=== PATIENT | male | born 1970 | race Caucasian/White ===

== ENCOUNTER 2017-07-29 20:52 | Emergency (ER) | payer OTHER ==
--- NOTE | 2017-07-29 20:55 | ER Report ---
History and Physical Time Seen By MD: 20:55 HPI/ROS CHIEF COMPLAINT: Abdominal pain, back pain HISTORY OF PRESENT ILLNESS: 47-year-old male with 4-5 hours of severe epigastric pain radiating to his back. Patient has severe nausea. He's not had any vomiting. He's had no diarrhea or dysuria. Patient states an extensive past surgical history he has a gastric bypass. He had appendectomy when they did a lymph node dissection for testicular cancer. He is also status post cholecystectomy. Patient notes pain radiates to his middle back between his shoulder blades. Patient denies shortness of breath or dizziness. He's noted some chills but no fever. He has a history of 2 previous kidney stones. He notes no alleviating or exacerbating factors. He describes 12/27 pain is colicky in nature. Patient denies recent travel or consumption of bad food. REVIEW OF SYSTEMS: Respiratory: No cough, no dyspnea. Cardiovascular: No chest pain, no palpitations. Gastrointestinal: As above Musculoskeletal: As above Allergies: Coded Allergies: acetaminophen (Verified Allergy, Intermediate, nausea/vomiting, 07/29/17) Iodine and Iodide Containing Produc (Verified Adverse Reaction, Intermediate, rash, 07/29/17) can have must be pre-treated with benadryl. Home Meds Active Scripts Ondansetron Hcl (ZOFRAN) 4 Mg Tablet, 4 MG PO Q8-12H Y for NAUSEA/VOMITING, #15 Prov:CARA RICHARD DO 07/30/17 Oxycodone Hcl (OXYCODONE HCL) 5 Mg Tablet, 1-2 TAB PO Q4H Y for PAIN, #15 Prov:CARA RICHARD DO 07/30/17 Reviewed Nurses Notes: Yes Old Medical Records Reviewed: Yes Constitutional Vital Sign - Last 24 Hours 07/29/17 07/29/17 07/29/17 07/29/17 21:01 21:01 21:07 21:15 Temp 97.8 Pulse 99 97 Resp 16 B/P (MAP) 124/91 124/91 (102) 114/81 (92) Pulse Ox 90 93 O2 Delivery Room Air 07/29/17 07/29/17 07/29/17 07/29/17 21:22 21:30 21:52 22:00 Pulse 102 89 B/P (MAP) 117/79 (92) 118/79 (92) 114/81 (92) Pulse Ox 94 92 07/29/17 07/29/17 07/29/17 07/29/17 22:07 22:12 22:15 22:27 Pulse 89 114 89 B/P (MAP) 117/79 (92) Pulse Ox 92 93 92 07/29/17 07/29/17 07/29/17 07/29/17 22:30 22:42 22:45 23:10 Pulse 90 B/P (MAP) 113/79 (90) 118/88 (98) 110/73 (85) Pulse Ox 88 07/29/17 07/29/17 07/29/17 07/29/17 23:12 23:15 23:27 23:30 Pulse 89 91 B/P (MAP) 109/75 (86) 100/67 (78) Pulse Ox 86 88 07/29/17 07/29/17 07/29/17 23:42 23:45 23:57 Pulse 90 89 B/P (MAP) 118/82 (94) Pulse Ox 87 91 Physical Exam Vital signs stable, afebrile, pulse ox normal General Appearance: The patient is alert, has no immediate need for airway protection and no current signs of toxicity. Mild distress, slightly pale appearing HEENT: Pupils equal and round no injection. Oropharynx with moist membranes, no erythema Respiratory: Chest is non tender, lungs are clear to auscultation. Cardiac: regular rate and rhythm Gastrointestinal: Abdomen is soft, mild distention, bilateral upper quadrant tenderness, no rebound or guarding, no masses, bowel sounds normal. Musculoskeletal: Neck: Neck is supple and non tender. No lymphadenopathy Extremities have full range of motion and are non tender. Skin: No rashes or lesions. DIFFERENTIAL DIAGNOSIS: After history and physical exam differential diagnosis was considered for abdominal pain including but not limited to appendicitis, cholecystitis, gastritis, gastroenteritis, pancreatitis, food poisoning, bowel obstruction, and urinary tract infection. Medical Decision Making Data Points Result Diagram: 07/29/17213207/29/172132 Laboratory Hematology Test 07/29/17 21:00 07/29/17 21:33 Urine Color Yellow Urine Clarity Clear Urine pH 5.0 pH (4.8-9.5) Urine Specific [place] 1.010 Urine Protein Negative mg/dL (NEGATIVE) Urine Glucose (UA) Negative mg/dL (NEGATIVE) Urine Ketones Trace mg/dL (NEGATIVE) Urine Blood Large (NEGATIVE) Urine Nitrite Negative (NEGATIVE) Urine Bilirubin Negative (NEGATIVE) Urine Urobilinogen Negative mg/dL (0.2-1.9) Urine Leukocyte Esterase Negative (NEGATIVE) Urine RBC 19 /HPF (0-2/HPF) Urine WBC 1 /HPF (0-5/HPF) Urine Squamous Epithelial Cells None /LPF (</=FEW) Urine Renal Epithelial Cells Few /LPF (NONE-FEW) Urine Bacteria Negative /HPF (NONE-FEW) Urine Mucus Few /HPF (NONE-FEW) Red Blood Count 4.89 M/uL (4.00-5.60) Mean Corpuscular Volume 81.5 fL (80.0-96.0) Mean Corpuscular Hemoglobin 26.8 pg (26.0-33.0) Mean Corpuscular Hemoglobin Concent 32.9 g/dL (32.0-36.0) Red Cell Distribution Width 18.6 % (11.5-14.5) Mean Platelet Volume 6.7 fL (7.2-11.1) Neutrophils (%) (Auto) 53.2 % (39.4-72.5) Lymphocytes (%) (Auto) 34.6 % (17.6-49.6) Monocytes (%) (Auto) 9.2 % (4.1-12.4) Eosinophils (%) (Auto) 1.8 % (0.4-6.7) Basophils (%) (Auto) 1.2 % (0.3-1.4) Nucleated RBC Relative Count (auto) 0.0 /100WBC Neutrophils # (Auto) 2.8 K/uL (2.0-7.4) Lymphocytes # (Auto) 1.8 K/uL (1.3-3.6) Monocytes # (Auto) 0.5 K/uL (0.3-1.0) Eosinophils # (Auto) 0.1 K/uL (0.0-0.5) Basophils # (Auto) 0.1 K/uL (0.0-0.1) Nucleated RBC Absolute Count (auto) 0.00 K/uL Sodium Level 146 mmol/L (137-145) Potassium Level 4.0 mmol/L (3.5-5.0) Chloride Level 108 mmol/L (98-107) Carbon Dioxide Level 17 mmol/L (22-30) Blood Urea Nitrogen 8 mg/dl (9-21) Creatinine 0.80 mg/dl (0.66-1.25) Glomerular Filtration Rate Calc > 60.0 Random Glucose 92 mg/dl (75-110) Calcium Level 9.0 mg/dl (8.4-10.2) Total Bilirubin 0.3 mg/dl (0.2-1.3) Aspartate Amino Transf (AST/SGOT) 24 U/L (0-35) Alanine Aminotransferase (ALT/SGPT) 29 U/L (0-56) Alkaline Phosphatase 97 U/L (0-126) Troponin I < 0.012 ng/ml Total Protein 7.7 gm/dl (6.3-8.2) Albumin 4.5 g/dl (3.5-5.0) Amylase Level 113 U/L (0-110) Lipase 384 U/L (23-300) Chemistry Test 07/29/17 21:00 07/29/17 21:33 Urine Color Yellow Urine Clarity Clear Urine pH 5.0 pH (4.8-9.5) Urine Specific [place] 1.010 Urine Protein Negative mg/dL (NEGATIVE) Urine Glucose (UA) Negative mg/dL (NEGATIVE) Urine Ketones Trace mg/dL (NEGATIVE) Urine Blood Large (NEGATIVE) Urine Nitrite Negative (NEGATIVE) Urine Bilirubin Negative (NEGATIVE) Urine Urobilinogen Negative mg/dL (0.2-1.9) Urine Leukocyte Esterase Negative (NEGATIVE) Urine RBC 19 /HPF (0-2/HPF) Urine WBC 1 /HPF (0-5/HPF) Urine Squamous Epithelial Cells None /LPF (</=FEW) Urine Renal Epithelial Cells Few /LPF (NONE-FEW) Urine Bacteria Negative /HPF (NONE-FEW) Urine Mucus Few /HPF (NONE-FEW) White Blood Count 5.2 k/uL (4.5-11.0) Red Blood Count 4.89 M/uL (4.00-5.60) Hemoglobin 13.1 g/dL (14.0-18.0) Hematocrit 39.8 % (42.0-52.0) Mean Corpuscular Volume 81.5 fL (80.0-96.0) Mean Corpuscular Hemoglobin 26.8 pg (26.0-33.0) Mean Corpuscular Hemoglobin Concent 32.9 g/dL (32.0-36.0) Red Cell Distribution Width 18.6 % (11.5-14.5) Platelet Count 334 K/uL (150-450) Mean Platelet Volume 6.7 fL (7.2-11.1) Neutrophils (%) (Auto) 53.2 % (39.4-72.5) Lymphocytes (%) (Auto) 34.6 % (17.6-49.6) Monocytes (%) (Auto) 9.2 % (4.1-12.4) Eosinophils (%) (Auto) 1.8 % (0.4-6.7) Basophils (%) (Auto) 1.2 % (0.3-1.4) Nucleated RBC Relative Count (auto) 0.0 /100WBC Neutrophils # (Auto) 2.8 K/uL (2.0-7.4) Lymphocytes # (Auto) 1.8 K/uL (1.3-3.6) Monocytes # (Auto) 0.5 K/uL (0.3-1.0) Eosinophils # (Auto) 0.1 K/uL (0.0-0.5) Basophils # (Auto) 0.1 K/uL (0.0-0.1) Nucleated RBC Absolute Count (auto) 0.00 K/uL Glomerular Filtration Rate Calc > 60.0 Calcium Level 9.0 mg/dl (8.4-10.2) Total Bilirubin 0.3 mg/dl (0.2-1.3) Aspartate Amino Transf (AST/SGOT) 24 U/L (0-35) Alanine Aminotransferase (ALT/SGPT) 29 U/L (0-56) Alkaline Phosphatase 97 U/L (0-126) Troponin I < 0.012 ng/ml Total Protein 7.7 gm/dl (6.3-8.2) Albumin 4.5 g/dl (3.5-5.0) Amylase Level 113 U/L (0-110) Lipase 384 U/L (23-300) Urinalysis Test 07/29/17 21:00 Urine Color Yellow Urine Clarity Clear Urine pH 5.0 pH (4.8-9.5) Urine Specific [place] 1.010 Urine Protein Negative mg/dL (NEGATIVE) Urine Glucose (UA) Negative mg/dL (NEGATIVE) Urine Ketones Trace mg/dL (NEGATIVE) Urine Blood Large (NEGATIVE) Urine Nitrite Negative (NEGATIVE) Urine Bilirubin Negative (NEGATIVE) Urine Urobilinogen Negative mg/dL (0.2-1.9) Urine Leukocyte Esterase Negative (NEGATIVE) Urine RBC 19 /HPF (0-2/HPF) Urine WBC 1 /HPF (0-5/HPF) Urine Squamous Epithelial Cells None /LPF (</=FEW) Urine Renal Epithelial Cells Few /LPF (NONE-FEW) Urine Bacteria Negative /HPF (NONE-FEW) Urine Mucus Few /HPF (NONE-FEW) EKG/Imaging EKG Interpretation 12 lead EK Rhythm: normal sinus rhythm [place]oe[place]: normal QRS: normal ST segments: normal, no evidence of ischemia or dysrhythmia Imaging X-ray: Three-way abdomen was obtained. I viewed the images myself on the PACS system. My interpretation of the images is: Dilated loops of small bowel, significant fecal stasis noted, no free air in the diaphragm, lung barney are clear. Radiology over read:. HISTORY: Lower abdominal pain for 3 days. History of gastric bypass. COMPARISON: None. TECHNIQUE: PA upright view of the chest, AP supine and AP upright views of the abdomen. Chest: The lungs are clear. The cardiac and mediastinal silhouettes are within normal limits. There is a mild rightward curvature of the thoracic spine. Abdomen: There is posterior lumbar fusion from L4 through S1. There are numerous surgical clips in the midline abdomen. The distribution of bowel gas is normal, with bowel in all four quadrants as well as centrally. No free air. There are mildly dilated small bowel loops in the right upper quadrant. No acute osseous abnormality. There is a left pelvic phlebolith. IMPRESSION: 1. No acute cardiopulmonary process. 2. Mildly dilated small bowel loops in the right upper quadrant. Findings could be due to small bowel obstruction. Results: CT scan of the abdomen and pelvis without contrast was obtained. The results of the study are CT of the abdomen and pelvis without contrast: Indication: Lower abdominal pain. History of multiple surgeries. Technique: Helical CT was performed through the abdomen and pelvis without contrast. Multiplanar reconstructions are reviewed. One of the following dose optimization techniques was utilized in the performance of this exam: Automated exposure control; adjustment of the mA and/ or kV according to the patient's size; or use of an iterative reconstruction technique. Specific details can be referenced in the facility's radiology CT exam operational policy. Comparison: None. Lower lung barney: No focal parenchymal or pleural abnormality is identified. Liver: Enlarged. The right lobe measures 20.6 cm. The hepatic parenchyma appears homogeneous and unremarkable. Gallbladder/biliary tree: There are surgical clips related to prior cholecystectomy. The bile ducts are normal in caliber. Pancreas: Normal in size, shape, and density. Spleen: Normal in size, shape, and density. A small accessory spleen is incidentally noted. Adrenal glands: Within normal limits. Kidneys/urinary bladder: The kidneys are normal in size, shape, and density. There are no signs of urinary tract calculus or obstruction. The urinary bladder appears homogeneous. Intestinal structures: There are postoperative changes around the esophagus and stomach, related to gastric bypass surgery. There are no signs of gastric dilatation or obstruction. The intestinal structures are otherwise unremarkable , as visualized. There are no signs of distal obstruction or focal inflammatory changes. Pelvis: Unremarkable. Aorta and vascular structures: Within normal limits. Retroperitoneum: Surgical clips are observed in the retroperitoneum, with uncertain etiology. There are no signs of retroperitoneal mass or lymph node enlargement. Ascites or fluid collections: None seen. Skeletal structures: There are unremarkable postoperative changes in the lower lumbar spine. No acute skeletal deformity is clearly identified. Impression: No acute process is identified in the abdomen or pelvis. The study was read by the radiologist. I viewed the images myself on the PACS system. ED Course/Re-evaluation Clinical Indication for ER IV: Hydration, IV Access ED Course Patient was admitted to an examination room. H&P was done. The differential diagnoses was considered. On clinical examination. Patient has upper abdominal pain for 5 hours. Patient's treated with IV fluids, Zofran, fentanyl 50 g. His pain is unimproved. A 3-way of the abdomen suggests small bowel obstruction. Patient has numerous previous surgeries. His laboratory studies are unremarkable except for mildly elevated amylase and lipase suggesting mild pancreatitis. Patient advised a clear liquid diet. He was offered the option of admission for pain control. He declined. He states a follow-up with his primary care in [place] if unimproved in 3-5 days. Patient's allergic to Tylenol. Patient's given a prescription for oxycodone and Zofran. Patient advised to follow-up with local internists information provided. Decision to Disposition Date: Jul 30, 2017 Decision to Disposition Time: 00:12 Depart Departure Latest Vital Signs Vital Signs Date Time Temp Pulse Resp B/P (MAP) Pulse Ox O2 Delivery O2 Flow Rate FiO2 07/29/17 23:57 89 91 07/29/17 23:45 118/82 (94) 07/29/17 21:01 97.8 16 Room Air Impression: Primary Impression: Pancreatitis Condition: Improved Disposition: HOME OR SELF-CARE Referrals: PETERSON CONDE MD, FARRUKH MD New Scripts Ondansetron Hcl (ZOFRAN) 4 Mg Tablet 4 MG PO Q8-12H Y for NAUSEA/VOMITING, #15 Prov: CARA RICHARD DO 07/30/17 Oxycodone Hcl (OXYCODONE HCL) 5 Mg Tablet 1-2 TAB PO Q4H Y for PAIN, #15 Prov: CARA RICHARD DO 07/30/17 Patient Instructions: Clear Liquid Diet (ED), Pancreatitis (ED) Additional Instructions: Follow clear liquid diet for 24-48 hours, then advance to Janessa diet, bananas, rice, applesauce and toast Follow-up with your primary care if unimproved in 3-5 days or go to the physicians listed on your paperwork Problem Qualifiers Primary Impression: Pancreatitis Chronicity: acute Pancreatitis type: unspecified pancreatitis type Acute pancreatitis complication: unspecified Qualified Codes: K85.90 - Acute pancreatitis without necrosis or infection, unspecified CARA RICHARD DO Jul 29, 2017 20:55
[2017-07-29] MEDS ORDERED: NS(*) 0.9% 1000 ML BAG 1,000 ML IV ONE (21:07)
[2017-07-29] MEDS ORDERED: fentaNYL CITR 100 MCG/2 ML AMP IVP ONE (21:10)
[2017-07-29] MEDS ORDERED: ONDANSETRON 4 MG/2 ML VIAL IVP ONE (21:10)
--- NOTE | 2017-07-29 21:18 | EKG ---
FACILITY: [facility] - [place] PATIENT NAME: REY GUIDRY : [id number] MR: [id number] V: [id number] EXAM DATE: ORDERING PHYSICIAN: CARA RICHARD TECHNOLOGIST: Juan Antonio Hebert Reason : Blood Pressure : / mmHG Vent. Rate : 097 BPM Atrial Rate : 097 BPM P-R Int : 138 ms QRS Dur : 090 ms QT Int : 350 ms P-R-T Axes : 032 -15 009 degrees QTc Int : 444 ms Normal sinus rhythm Normal ECG No previous ECGs available Confirmed by CARMELO PARRISH ([id number]) on 07/30/2017 6:49:28 AM Referred By: Confirmed By:CARMELO PARRISH
[2017-07-29 21:39] LABS: PLATELET COUNT, AUTOMATED 334 K/uL (150-450)
[2017-07-29] MEDS ORDERED: HYDROmorphone* 1 MG/ML 1 MG/ML ML IVP ONE ×2 (22:00→23:00)
--- NOTE | 2017-07-29 22:39 | RADIOLOGY IMAGING REPORT ---
FACILITY: [facility] PATIENT NAME: Roberto Hilliard : 1970 MR: [id number] V: [id number] EXAM DATE: ORDERING PHYSICIAN: CARA RICHARD TECHNOLOGIST: [place] [facility] [place] H[place] : 1970 Visit/Account:[id number] Date of Sevice: 07/29/2017 ACUTE ABDOMEN SERIES 3 VIEW HISTORY: Lower abdominal pain for 3 days. History of gastric bypass. COMPARISON: None. TECHNIQUE: PA upright view of the chest, AP supine and AP upright views of the abdomen. Chest: The lungs are clear. The cardiac and mediastinal silhouettes are within normal limits. There i s a mild rightward curvature of the thoracic spine. Abdomen: There is posterior lumbar fusion from L4 through S1. There are numerous surgical clips in th e midline abdomen. The distribution of bowel gas is normal, with bowel in all four quadrants as well as centrally. No free air. There are mildly dilated small bowel loops in the right upper quadrant. No acute osseous abnormality. There is a left pelvic phlebolith. IMPRESSION: 1. No acute cardiopulmonary process. 2. Mildly dilated small bowel loops in the right upper quadrant. Findings could be due to small bowel obstruction. Report Dictated By: Rowena Caro at 07/29/2017 10:32 PM Report E-Signed By: Rowena Caro at 07/29/2017 10:34 PM WSN:[id number]
[2017-07-29 23:45] VITALS: BP 118/82
--- NOTE | 2017-07-30 | RADIOLOGY IMAGING REPORT ---
FACILITY: [facility] - [place] PATIENT NAME: Roberto Hilliard : 1970 MR: [id number] V: [id number] EXAM DATE: ORDERING PHYSICIAN: CARA RICHARD TECHNOLOGIST: Location: [facility] - [place] Patient: Roberto Hilliard : 1970 Visit/Account:[id number] Date of Sevice: 07/29/2017 CT of the abdomen and pelvis without contrast: Indication: Lower abdominal pain. History of multiple surgeries. Technique: Helical CT was performed through the abdomen and pelvis without contrast. Multiplanar rec onstructions are reviewed. One of the following dose optimization techniques was utilized in the performance of this exam: Autom ated exposure control; adjustment of the mA and/or kV according to the patient's size; or use of an i terative reconstruction technique. Specific details can be referenced in the facility's radiology C T exam operational policy. Comparison: None. Lower lung barney: No focal parenchymal or pleural abnormality is identified. Liver: Enlarged. The right lobe measures 20.6 cm. The hepatic parenchyma appears homogeneous and unre markable. Gallbladder/biliary tree: There are surgical clips related to prior cholecystectomy. The bile ducts a re normal in caliber. Pancreas: Normal in size, shape, and density. Spleen: Normal in size, shape, and density. A small accessory spleen is incidentally noted. Adrenal glands: Within normal limits. Kidneys/urinary bladder: The kidneys are normal in size, shape, and density. There are no signs of ur inary tract calculus or obstruction. The urinary bladder appears homogeneous. Intestinal structures: There are postoperative changes around the esophagus and stomach, related to g astric bypass surgery. There are no signs of gastric dilatation or obstruction. The intestinal struct ures are otherwise unremarkable, as visualized. There are no signs of distal obstruction or focal inf lammatory changes. Pelvis: Unremarkable. Aorta and vascular structures: Within normal limits. Retroperitoneum: Surgical clips are observed in the retroperitoneum, with uncertain etiology. There a re no signs of retroperitoneal mass or lymph node enlargement. Ascites or fluid collections: None seen. Skeletal structures: There are unremarkable postoperative changes in the lower lumbar spine. No acute skeletal deformity is clearly identified. Impression: No acute process is identified in the abdomen or pelvis. Report Dictated By: Camilo Rosa MD at 07/29/2017 11:46 PM Report E-Signed By: Camilo Rosa MD at 07/29/2017 11:56 PM WSN:[id number]
[2017-07-30] MEDS ORDERED: OXYC5TAB38 PO (00:14)
[2017-07-30] MEDS ORDERED: ONDA4TAB97 PO (00:15)
[2017-07-30] MEDS ORDERED: KETOROLAC 30 MG/ML VIAL IVP ONE (00:20)
[2017-07-30] MEDS ORDERED: ONDANSETRON 4 MG ODT TH SL ONE (00:20)
[2017-07-30] MEDS ORDERED: HYDROmorphone 2 MG TAB TH 2 TAB/BOTTLE PO ONE (00:20)
--- NOTE | 2017-08-02 11:49 | Transitional Care Management ---
TCM Discharge Criteria Transitional Care Comment: 08/02 Left message. TAWANA STORM Aug 02, 2017 11:49
== END 2017-07-30 00:30 | disposition home or self-care (01) ==
LOC: ER 21:03
DX: K85.90 Acute pancreatitis without necrosis or infection, unspecified (principal)
CPT/HCPCS: 74022; 74176; 81001; 82150; 83690; 84484; 85025; 93005; 96361; 96374; 96375; 99284; A9270; J1170; J1885; J2405; J3010; J7030; S0119; 82040; 82247; 82310; 82374; 82435; 82565; 82947; 84075; 84132; 84155; 84295; 84450; 84460; 84520

== ENCOUNTER 2017-08-02 22:36 | Emergency (ER) | payer BC, OTHER ==
[~2017-08-02 22:36] MED LIST: ONDA4TAB97 PO; OXYC5TAB38 PO
--- NOTE | 2017-08-02 23:00 | ER Report ---
History and Physical Time Seen By MD: 22:59 HPI/ROS CHIEF COMPLAINT: Abdominal pain, vomiting HISTORY OF PRESENT ILLNESS: 47-year-old male seen here on 07/28/17 diagnosed with mild pancreatitis. His lipase was 384. Patient was discharged home on oxycodone 5 mg and Zofran 4 mg. Patient follow clear liquid diet and was better after 24 hours. He subsequently got worse over the last 2 days with return of vomiting and epigastric pain radiating to his back. She had a CT scan without contrast performed on his previous ER visit 4 days ago. Patient denies hematemesis or diarrhea. REVIEW OF SYSTEMS: Respiratory: No cough, no dyspnea. Cardiovascular: No chest pain, no palpitations. Gastrointestinal: As above Musculoskeletal: As above Allergies: Coded Allergies: acetaminophen (Verified Allergy, Intermediate, nausea/vomiting, 08/02/17) Iodine and Iodide Containing Produc (Verified Adverse Reaction, Intermediate, rash, 08/02/17) can have must be pre-treated with benadryl. Home Meds Active Scripts Oxycodone Hcl (OXYCODONE HCL) 5 Mg Tablet, 5 MG PO Q4H Y for PAIN, #10 Prov:CARA RICHARD DO 08/03/17 Ondansetron (ZOFRAN ODT) 4 Mg Tab.rapdis, 4 MG PO Q6H Y for NAUSEA/VOMITING, # 12 TAB.LUCILA Prov:CARA RICHARD DO 08/03/17 Promethazine Hcl (PROMETHAZINE HCL) 25 Mg Tablet, 25 MG PO Q4H Y for NAUSEA/ VOMITING, #15 TAB Prov:CARA RICHARD DO 08/03/17 Ondansetron Hcl (ZOFRAN) 4 Mg Tablet, 4 MG PO Q8-12H Y for NAUSEA/VOMITING, #15 Prov:CARA RICHARD 07/30/17 Oxycodone Hcl (OXYCODONE HCL) 5 Mg Tablet, 1-2 TAB PO Q4H Y for PAIN, #15 Prov:CARA RICHARD 07/30/17 Past Medical/Surgical History Pancreatitis Reviewed Nurses Notes: Yes Old Medical Records Reviewed: Yes Constitutional Vital Sign - Last 24 Hours 08/02/17 08/02/17 08/02/17 08/02/17 23:01 23:02 23:06 23:36 Temp 98.5 Pulse 123 120 117 Resp 18 B/P (MAP) 112/70 (84) 112/70 Pulse Ox 94 95 93 O2 Delivery Room Air 08/02/17 08/02/17 08/03/17 08/03/17 23:48 23:51 00:00 00:06 Pulse ? B/P (MAP) 98/66 (77) 91/59 (70) Pulse Ox 90 89 08/03/17 08/03/17 08/03/17 08/03/17 00:21 00:30 00:35 00:50 Pulse 101 101 100 B/P (MAP) 99/62 (74) Pulse Ox 90 89 89 08/03/17 08/03/17 08/03/17 08/03/17 01:00 01:05 01:14 01:20 Pulse 92 90 B/P (MAP) 102/76 (85) 96/74 (81) Pulse Ox 88 89 08/03/17 01:30 B/P (MAP) 116/78 (91) Physical Exam General Appearance: The patient is alert, has no immediate need for airway protection and no current signs of toxicity. Slightly pale appearing, skin warm and dry, vital signs stable, afebrile HEENT: Pupils equal and round no injection. Anicteric sclera, oropharynx with moist. Membranes, no erythema or exudate Respiratory: Chest is non tender, lungs are clear to auscultation. Cardiac: regular rate and rhythm Gastrointestinal: [Abdomen is soft mild epigastric tenderness, no rebound or guarding, no masses, bowel sounds normal.] Musculoskeletal: Neck: Neck is supple and non tender. Extremities have full range of motion and are non tender. Skin: No rashes or lesions. DIFFERENTIAL DIAGNOSIS: After history and physical exam differential diagnosis was considered for abdominal pain including but not limited to appendicitis, cholecystitis, gastritis, pancreatitis and urinary tract infection. Medical Decision Making Data Points Result Diagram: 08/02/17 1762 08/02/17 2336 Laboratory Hematology Test 08/02/17 22:58 08/02/17 23:39 Urine Color Yellow Urine Clarity Clear Urine pH 6.0 pH (4.8-9.5) Urine Specific [place] 1.011 Urine Protein Negative mg/dL (NEGATIVE) Urine Glucose (UA) 500 mg/dL (NEGATIVE) Urine Ketones 20 mg/dL (NEGATIVE) Urine Blood Moderate (NEGATIVE) Urine Nitrite Negative (NEGATIVE) Urine Bilirubin Negative (NEGATIVE) Urine Urobilinogen 2.0 mg/dL (0.2-1.9) Urine Leukocyte Esterase Negative (NEGATIVE) Urine RBC 8 /HPF (0-2/HPF) Urine WBC 7 /HPF (0-5/HPF) Urine Squamous Epithelial Cells None /LPF (</=FEW) Urine Bacteria Negative /HPF (NONE-FEW) Urine Mucus None /HPF (NONE-FEW) Red Blood Count 4.97 M/uL (4.00-5.60) Mean Corpuscular Volume 81.7 fL (80.0-96.0) Mean Corpuscular Hemoglobin 26.4 pg (26.0-33.0) Mean Corpuscular Hemoglobin Concent 32.3 g/dL (32.0-36.0) Red Cell Distribution Width 18.7 % (11.5-14.5) Mean Platelet Volume 7.1 fL (7.2-11.1) Neutrophils (%) (Auto) 55.7 % (39.4-72.5) Lymphocytes (%) (Auto) 30.4 % (17.6-49.6) Monocytes (%) (Auto) 10.9 % (4.1-12.4) Eosinophils (%) (Auto) 2.0 % (0.4-6.7) Basophils (%) (Auto) 1.0 % (0.3-1.4) Nucleated RBC Relative Count (auto) 0.0 /100WBC Neutrophils # (Auto) 3.3 K/uL (2.0-7.4) Lymphocytes # (Auto) 1.8 K/uL (1.3-3.6) Monocytes # (Auto) 0.6 K/uL (0.3-1.0) Eosinophils # (Auto) 0.1 K/uL (0.0-0.5) Basophils # (Auto) 0.1 K/uL (0.0-0.1) Nucleated RBC Absolute Count (auto) 0.00 K/uL Peripheral Blood Smear No Y/N Venous Blood pH 7.44 (7.31-7.41) Sodium Level 144 mmol/L (137-145) Potassium Level 3.9 mmol/L (3.5-5.0) Chloride Level 109 mmol/L (98-107) Carbon Dioxide Level 15 mmol/L (22-30) Blood Urea Nitrogen 10 mg/dl (9-21) Creatinine 0.90 mg/dl (0.66-1.25) Glomerular Filtration Rate Calc > 60.0 Random Glucose 79 mg/dl (75-110) Calcium Level 9.3 mg/dl (8.4-10.2) Total Bilirubin 0.5 mg/dl (0.2-1.3) Aspartate Amino Transf (AST/SGOT) 25 U/L (0-35) Alanine Aminotransferase (ALT/SGPT) 21 U/L (0-56) Alkaline Phosphatase 104 U/L (0-126) Total Protein 7.7 gm/dl (6.3-8.2) Albumin 4.4 g/dl (3.5-5.0) Amylase Level 98 U/L (0-110) Lipase 286 U/L (23-300) Chemistry Test 08/02/17 22:58 08/02/17 23:39 Urine Color Yellow Urine Clarity Clear Urine pH 6.0 pH (4.8-9.5) Urine Specific [place] 1.011 Urine Protein Negative mg/dL (NEGATIVE) Urine Glucose (UA) 500 mg/dL (NEGATIVE) Urine Ketones 20 mg/dL (NEGATIVE) Urine Blood Moderate (NEGATIVE) Urine Nitrite Negative (NEGATIVE) Urine Bilirubin Negative (NEGATIVE) Urine Urobilinogen 2.0 mg/dL (0.2-1.9) Urine Leukocyte Esterase Negative (NEGATIVE) Urine RBC 8 /HPF (0-2/HPF) Urine WBC 7 /HPF (0-5/HPF) Urine Squamous Epithelial Cells None /LPF (</=FEW) Urine Bacteria Negative /HPF (NONE-FEW) Urine Mucus None /HPF (NONE-FEW) White Blood Count 5.9 k/uL (4.5-11.0) Red Blood Count 4.97 M/uL (4.00-5.60) Hemoglobin 13.1 g/dL (14.0-18.0) Hematocrit 40.6 % (42.0-52.0) Mean Corpuscular Volume 81.7 fL (80.0-96.0) Mean Corpuscular Hemoglobin 26.4 pg (26.0-33.0) Mean Corpuscular Hemoglobin Concent 32.3 g/dL (32.0-36.0) Red Cell Distribution Width 18.7 % (11.5-14.5) Platelet Count 369 K/uL (150-450) Mean Platelet Volume 7.1 fL (7.2-11.1) Neutrophils (%) (Auto) 55.7 % (39.4-72.5) Lymphocytes (%) (Auto) 30.4 % (17.6-49.6) Monocytes (%) (Auto) 10.9 % (4.1-12.4) Eosinophils (%) (Auto) 2.0 % (0.4-6.7) Basophils (%) (Auto) 1.0 % (0.3-1.4) Nucleated RBC Relative Count (auto) 0.0 /100WBC Neutrophils # (Auto) 3.3 K/uL (2.0-7.4) Lymphocytes # (Auto) 1.8 K/uL (1.3-3.6) Monocytes # (Auto) 0.6 K/uL (0.3-1.0) Eosinophils # (Auto) 0.1 K/uL (0.0-0.5) Basophils # (Auto) 0.1 K/uL (0.0-0.1) Nucleated RBC Absolute Count (auto) 0.00 K/uL Peripheral Blood Smear No Y/N Venous Blood pH 7.44 (7.31-7.41) Glomerular Filtration Rate Calc > 60.0 Calcium Level 9.3 mg/dl (8.4-10.2) Total Bilirubin 0.5 mg/dl (0.2-1.3) Aspartate Amino Transf (AST/SGOT) 25 U/L (0-35) Alanine Aminotransferase (ALT/SGPT) 21 U/L (0-56) Alkaline Phosphatase 104 U/L (0-126) Total Protein 7.7 gm/dl (6.3-8.2) Albumin 4.4 g/dl (3.5-5.0) Amylase Level 98 U/L (0-110) Lipase 286 U/L (23-300) Urinalysis Test 08/02/17 22:58 Urine Color Yellow Urine Clarity Clear Urine pH 6.0 pH (4.8-9.5) Urine Specific [place] 1.011 Urine Protein Negative mg/dL (NEGATIVE) Urine Glucose (UA) 500 mg/dL (NEGATIVE) Urine Ketones 20 mg/dL (NEGATIVE) Urine Blood Moderate (NEGATIVE) Urine Nitrite Negative (NEGATIVE) Urine Bilirubin Negative (NEGATIVE) Urine Urobilinogen 2.0 mg/dL (0.2-1.9) Urine Leukocyte Esterase Negative (NEGATIVE) Urine RBC 8 /HPF (0-2/HPF) Urine WBC 7 /HPF (0-5/HPF) Urine Squamous Epithelial Cells None /LPF (</=FEW) Urine Bacteria Negative /HPF (NONE-FEW) Urine Mucus None /HPF (NONE-FEW) ED Course/Re-evaluation Clinical Indication for ER IV: Hydration, IV Access ED Course Patient was admitted to an examination room. H&P was done. The differential diagnoses was considered. On clinical examination. I'll pain and vomiting for 2 days. He was diagnosed with pancreatitis on his previous ER visit on . Patient's treated with IV pain medication. His repeat diagnostic studies are normal. The lack of clinical findings. Race suspicions. Prescription drug monitoring website for [place] and [place] were searched. Patient has numerous entries at various ERs and locations which would suggest drug-seeking behavior. He was confronted with this information. He states he's has a back ablation scheduled for his failed back surgery. He also states he uses them for chronic abdominal pain. I advised patient he needs a single primary provider providing his chronic pain management. Patient advised that no further opiate prescriptions will be provided at our location. Decision to Disposition Date: Aug 03, 2017 Decision to Disposition Time: 00:21 Depart Departure Latest Vital Signs Vital Signs Date Time Temp Pulse Resp B/P (MAP) Pulse Ox O2 Delivery O2 Flow Rate FiO2 08/03/17 01:30 116/78 (91) 08/03/17 01:20 90 89 08/02/17 23:02 98.5 18 Room Air Impression: Primary Impression: Vomiting Additional Impressions: Abdominal pain Opiate withdrawal Condition: Improved Disposition: HOME OR SELF-CARE Referrals: ANTONIO MAYNARD MD New Scripts Oxycodone Hcl (OXYCODONE HCL) 5 Mg Tablet 5 MG PO Q4H Y for PAIN, #10 Prov: CARA RICHARD DO 08/03/17 Ondansetron (ZOFRAN ODT) 4 Mg Tab.rapdis 4 MG PO Q6H Y for NAUSEA/VOMITING, #12 TAB.LUCILA Prov: CARA RICHARD DO 08/03/17 Promethazine Hcl (PROMETHAZINE HCL) 25 Mg Tablet 25 MG PO Q4H Y for NAUSEA/VOMITING, #15 TAB Prov: CARA RICHARD DO 08/03/17 Patient Instructions: Abdominal Pain (ED), Acute Nausea and Vomiting (ED) Additional Instructions: Follow clear liquid diet for 24 hours, then advance as tolerated Avoid fatty food, greasy foods, vegetables and dairy Follow-up with your primary care if unimproved in 3-5 days Problem Qualifiers Primary Impression: Vomiting Vomiting type: unspecified Vomiting Intractability: unspecified Nausea presence: unspecified Qualified Codes: R11.10 - Vomiting, unspecified Additional Impressions: Abdominal pain Abdominal location: epigastric Qualified Codes: R10.13 - Epigastric pain CARA RICHARD DO Aug 02, 2017 23:00
[2017-08-02] MEDS ORDERED: NS(*) 0.9% 1000 ML BAG 1,000 ML IV ONE (23:04)
[2017-08-02] MEDS ORDERED: ONDANSETRON 4 MG/2 ML VIAL IVP ONE (23:05)
[2017-08-02] MEDS ORDERED: HYDROmorphone* 1 MG/ML 1 MG/ML ML IVP ONE (23:05)
[2017-08-02] MEDS ORDERED: PROMETHAZINE 25 MG/ML 1 ML AMP IVP ONE (23:05)
[2017-08-02 23:57] LABS: PLATELET COUNT, AUTOMATED 369 K/uL (150-450)
[2017-08-03] MEDS ORDERED: PROM-110 PO (00:25)
[2017-08-03] MEDS ORDERED: ONDA4TAB PO (00:25)
[2017-08-03] MEDS ORDERED: OXYC5TAB38 PO (00:25)
[2017-08-03] MEDS ORDERED: KETOROLAC 30 MG/ML VIAL IVP ONE (01:10)
[2017-08-03] MEDS ORDERED: PROMETHAZINE HCL 25 MG TAB TH 2 TAB/BOTTLE PO ONE (01:10)
[2017-08-03 01:30] VITALS: BP 116/78
== END 2017-08-03 01:42 | disposition home or self-care (01) ==
LOC: ER 22:39
DX: F11.23 Opioid dependence with withdrawal (principal); R10.13 Epigastric pain; R11.10 Vomiting, unspecified
CPT/HCPCS: 81001; 82040; 82150; 82247; 82310; 82374; 82435; 82565; 82800; 82947; 83690; 84075; 84132; 84155; 84295; 84450; 84460; 84520; 85025; 96361; 96374; 96375; 99284; J1170; J1885; J2405; J2550; J7030

== ENCOUNTER 2017-08-26 11:21 | Emergency (ER) | payer BC ==
[~2017-08-26 11:21] MED LIST changes: +ONDA4TAB PO; +PROM-110 PO
--- NOTE | 2017-08-26 11:32 | ER Report ---
History and Physical Time Seen By MD: 11:30 Hx. of Stated Complaint: PT DIAGNOSED WITH E'S LAST WEEK AT [facility], STARTED ON ELLIQUIS BUT STATES HE FEELS LIKE HIS SOB IS GETTING WORSE AND HE IS ALSO SARTING TO HAVE CP HPI/ROS CHIEF COMPLAINT: Chest pain HISTORY OF PRESENT ILLNESS: This is a 47-year-old male who presents to the emergency department for chest pain. Patient states that one week ago he was diagnosed with multiple PEs bilaterally at [facility] in [place] they hospitalize him for approximately a day and half, started him on Eliquis and bridged him with Lovenox injections. Patient states that he was discharged was doing okay and then over the last several days he's had increased shortness of breath now having anterior chest pain whereas before he had pain and pressure in his back between shoulder blades. Patient states that the pain is bandlike across the chest. Patient denies nausea, vomiting, diarrhea , aches, chills him headaches, rashes. REVIEW OF SYSTEMS: Constitutional: No fever, no chills. Eyes: No discharge. ENT: No sore throat. Cardiovascular: As above. Respiratory: As above. Gastrointestinal: No abdominal pain, no vomiting. Genitourinary: No hematuria. Musculoskeletal: No back pain. Skin: No rashes. Neurological: No headache. Allergies: Coded Allergies: acetaminophen (Verified Allergy, Intermediate, nausea/vomiting, 08/26/17) Iodine and Iodide Containing Produc (Verified Adverse Reaction, Intermediate, rash, 08/26/17) can have must be pre-treated with benadryl. Home Meds Active Scripts Hydrocodone Bit/Acetaminophen (HYDROCODON-ACETAMINOPHEN 5-325) 1 Each Tablet, 1 EACH PO Q4-6H Y for PAIN, #10 TAB 0 Refills Prov:BRENNON JOLLEY [employer] 08/26/17 Ondansetron (ZOFRAN ODT) 4 Mg Tab.rapdis, 4 MG PO Q6H Y for NAUSEA/VOMITING, # 20 TAB.LUCILA Prov:BRENNON JOLLEY [employer] MANA[employer]BC 08/26/17 Hydrocodone Bit/Acetaminophen (HYDROCODON-ACETAMINOPHEN 5-325) 1 Each Tablet, 1 EACH PO Q4-6H Y for PAIN, #10 TAB Prov:BRENNON JOLLEY [employer] MA[employer] 08/26/17 Ondansetron Hcl (ZOFRAN) 4 Mg Tablet, 4 MG PO Q8-12H Y for NAUSEA/VOMITING, #15 Prov:CARA RICHARD DO 07/30/17 Discontinued Scripts Oxycodone Hcl (OXYCODONE HCL) 5 Mg Tablet, 5 MG PO Q4H Y for PAIN, #10 Prov:CARA RICHARD DO 08/03/17 Ondansetron (ZOFRAN ODT) 4 Mg Tab.rapdis, 4 MG PO Q6H Y for NAUSEA/VOMITING, # 12 TAB.LUCILA Prov:CARA RICHARD DO 08/03/17 Promethazine Hcl (PROMETHAZINE HCL) 25 Mg Tablet, 25 MG PO Q4H Y for NAUSEA/ VOMITING, #15 TAB Prov:CARA RICHARD DO 08/03/17 Oxycodone Hcl (OXYCODONE HCL) 5 Mg Tablet, 1-2 TAB PO Q4H Y for PAIN, #15 Prov:CARA RICHARD DO 07/30/17 Past Medical/Surgical History Patient has a past medical and surgical history of PFO closure, kidney stones, wears glasses, testicular cancer, lymph node removal, gastric bypass, appendectomy, cholecystectomy, L4-5 fusion. Pulmonary embolus. Constitutional Vital Sign - Last 24 Hours 08/26/17 08/26/17 08/26/17 08/26/17 11:26 11:27 11:30 11:56 Temp 98.0 Pulse 99 108 Resp 18 14 B/P (MAP) 139/92 (108) 139/92 126/92 (103) Pulse Ox 93 95 08/26/17 08/26/17 08/26/17 08/26/17 12:00 12:06 13:00 13:16 Pulse 105 97 Resp 25 32 B/P (MAP) 125/102 (110) 118/83 (95) 08/26/17 08/26/17 08/26/17 08/26/17 13:30 13:36 13:51 14:00 Pulse 100 99 Resp 16 30 B/P (MAP) 121/100 (107) 133/100 (111) 08/26/17 08/26/17 08/26/17 08/26/17 14:26 14:30 14:56 15:00 Pulse 101 95 Resp 18 14 B/P (MAP) 135/105 (115) 152/95 (114) Pulse Ox 93 08/26/17 08/26/17 15:26 15:30 Pulse 98 Resp 20 B/P (MAP) 124/95 (105) Pulse Ox 92 Physical Exam General Appearance: The patient is alert, has no immediate need for airway protection and no signs of toxicity, appears slightly anxious. Eyes: Pupils equal and round no pallor or injection. ENT, Mouth: Mucous membranes are moist. Respiratory: There are no retractions, lungs are clear to auscultation. Cardiovascular: Regular rate and rhythm, very mild systolic murmur, no clicks or rubs. Gastrointestinal: Abdomen is soft and non tender, no masses, bowel sounds normal. Neurological: Alert and oriented 4. Moving all extremities. Following all commands. No focal neuro deficits. Skin: Warm and dry, no rashes. Musculoskeletal: Neck is supple non tender. Extremities are nontender, nonswollen and have full range of motion. DIFFERENTIAL DIAGNOSIS: After history and physical exam differential diagnosis was considered for chest pain including but not limited to myocardial ischemia, pericarditis pulmonary embolus, chest wall pain, pleural inflammation and pulmonary infectious causes, shortness of breath including but not limited to pulmonary infectious process, COPD, asthma, pulmonary embolus and congestive heart failure. Medical Decision Making Data Points Result Diagram: 08/26/17 1145 08/26/17 1145 Laboratory Hematology Test 08/26/17 11:45 Red Blood Count 4.97 M/uL (4.00-5.60) Mean Corpuscular Volume 80.3 fL (80.0-96.0) Mean Corpuscular Hemoglobin 26.1 pg (26.0-33.0) Mean Corpuscular Hemoglobin Concent 32.5 g/dL (32.0-36.0) Red Cell Distribution Width 18.1 % (11.5-14.5) Mean Platelet Volume 7.1 fL (7.2-11.1) Neutrophils (%) (Auto) 69.2 % (39.4-72.5) Lymphocytes (%) (Auto) 19.0 % (17.6-49.6) Monocytes (%) (Auto) 9.1 % (4.1-12.4) Eosinophils (%) (Auto) 2.4 % (0.4-6.7) Basophils (%) (Auto) 0.3 % (0.3-1.4) Nucleated RBC Relative Count (auto) 0.2 /100WBC Neutrophils # (Auto) 5.3 K/uL (2.0-7.4) Lymphocytes # (Auto) 1.5 K/uL (1.3-3.6) Monocytes # (Auto) 0.7 K/uL (0.3-1.0) Eosinophils # (Auto) 0.2 K/uL (0.0-0.5) Basophils # (Auto) 0.0 K/uL (0.0-0.1) Nucleated RBC Absolute Count (auto) 0.01 K/uL Prothrombin Time 13.4 seconds (12.0-14.4) Prothromb Time International Ratio 1.02 Activated Partial Thromboplast Time 25 seconds (23-35) Sodium Level 140 mmol/L (137-145) Potassium Level 3.5 mmol/L (3.5-5.0) Chloride Level 102 mmol/L (98-107) Carbon Dioxide Level 21 mmol/L (22-30) Blood Urea Nitrogen 12 mg/dl (9-21) Creatinine 0.90 mg/dl (0.66-1.25) Glomerular Filtration Rate Calc > 60.0 Random Glucose 94 mg/dl (75-110) Calcium Level 9.4 mg/dl (8.4-10.2) Total Bilirubin 0.7 mg/dl (0.2-1.3) Aspartate Amino Transf (AST/SGOT) 31 U/L (0-35) Alanine Aminotransferase (ALT/SGPT) 21 U/L (0-56) Alkaline Phosphatase 105 U/L (0-126) Troponin I < 0.012 ng/ml B-Type Natriuretic Peptide 16 pg/ml (0-100) Total Protein 7.2 gm/dl (6.3-8.2) Albumin 4.0 g/dl (3.5-5.0) Chemistry Test 08/26/17 11:45 White Blood Count 7.7 k/uL (4.5-11.0) Red Blood Count 4.97 M/uL (4.00-5.60) Hemoglobin 13.0 g/dL (14.0-18.0) Hematocrit 39.9 % (42.0-52.0) Mean Corpuscular Volume 80.3 fL (80.0-96.0) Mean Corpuscular Hemoglobin 26.1 pg (26.0-33.0) Mean Corpuscular Hemoglobin Concent 32.5 g/dL (32.0-36.0) Red Cell Distribution Width 18.1 % (11.5-14.5) Platelet Count 332 K/uL (150-450) Mean Platelet Volume 7.1 fL (7.2-11.1) Neutrophils (%) (Auto) 69.2 % (39.4-72.5) Lymphocytes (%) (Auto) 19.0 % (17.6-49.6) Monocytes (%) (Auto) 9.1 % (4.1-12.4) Eosinophils (%) (Auto) 2.4 % (0.4-6.7) Basophils (%) (Auto) 0.3 % (0.3-1.4) Nucleated RBC Relative Count (auto) 0.2 /100WBC Neutrophils # (Auto) 5.3 K/uL (2.0-7.4) Lymphocytes # (Auto) 1.5 K/uL (1.3-3.6) Monocytes # (Auto) 0.7 K/uL (0.3-1.0) Eosinophils # (Auto) 0.2 K/uL (0.0-0.5) Basophils # (Auto) 0.0 K/uL (0.0-0.1) Nucleated RBC Absolute Count (auto) 0.01 K/uL Prothrombin Time 13.4 seconds (12.0-14.4) Prothromb Time International Ratio 1.02 Activated Partial Thromboplast Time 25 seconds (23-35) Glomerular Filtration Rate Calc > 60.0 Calcium Level 9.4 mg/dl (8.4-10.2) Total Bilirubin 0.7 mg/dl (0.2-1.3) Aspartate Amino Transf (AST/SGOT) 31 U/L (0-35) Alanine Aminotransferase (ALT/SGPT) 21 U/L (0-56) Alkaline Phosphatase 105 U/L (0-126) Troponin I < 0.012 ng/ml B-Type Natriuretic Peptide 16 pg/ml (0-100) Total Protein 7.2 gm/dl (6.3-8.2) Albumin 4.0 g/dl (3.5-5.0) Coagulation Test 5/10/18 11:45 Prothrombin Time 13.4 seconds Prothromb Time International Ratio 1.02 Activated Partial Thromboplast Time 25 seconds EKG/Imaging EKG Interpretation 12 lead EKG: Time of EKG 1127. Rhythm: Normal sinus rhythm, ventricular rate 93 bpm. [place]: normal QRS: normal ST segments: No ST elevation or depression identified. Imaging Location: [facility] [place] Patient: Roberto Hilliard : 1970 Visit/Account:[id number] Date of Sevice: 08/26/2017 EXAMINATION: CTA of the chest with IV contrast HISTORY: Known pulmonary emboli, now having chest pain and increased shortness of breath. COMPARISON: CTA of the chest from 08/12/2017 at [facility]. TECHNIQUE: Pulmonary embolus protocol - Thin-slice axial imaging of the chest was performed during maximal pulmonary arterial opacification with intravenous nonionic iodinated contrast. 3D coronal slab MIPs and 2D reconstructions in the coronal and sagittal planes were performed to aid in pulmonary embolus detection. [employer] images have been stored on PACS. CONTRAST: 75 mL of IV Isovue-370 One of the following dose optimization techniques was utilized in the performance of this exam: Automated exposure control; adjustment of the mA and/ or kV according to the patient's size; or use of an iterative reconstruction technique. Specific details can be referenced in the facility's radiology CT exam operational policy. FINDINGS: CTA CHEST: Please note that this exam is optimized for assessment of the pulmonary arteries and is not intended as a diagnostic study of the thoracic aorta, coronary arteries or venous structures. Angiographic Findings: Pulmonary arteries: There are multiple small filling defects within bilateral segmental pulmonary artery branches. These have decreased in size since the previous examination. No obvious new pulmonary emboli since the previous examination. The main pulmonary artery is normal caliber measuring 2.6 cm in diameter. Other vasculature: Mild coronary artery calcification involving the LAD. Additional non-angiographic findings: Lungs / Pleura: No focal consolidation or pleural effusion. Mediastinum / Nusrat: Negative. Heart / Pericardium: Normal heart size. There is suggestion of an interatrial septum closure device. Musculoskeletal / Body wall: Negative. Lymph node assessment: Negative. Upper abdomen: Surgical changes of the stomach and bowel. Lower neck: Negative. IMPRESSION: Since the previous examination on 08/12/2017, the multiple segmental pulmonary emboli have decreased in size. No definite evidence of new pulmonary emboli since the previous examination. Mild coronary artery calcification. Report Dictated By: Octavio Post MD at 08/26/2017 12:57 PM Report E-Signed By: Octavio Post MD at 08/26/2017 1:16 PM [id number] ED Course/Re-evaluation Clinical Indication for ER IV: IV Access ED Course The patient was admitted to a room. A history and physical obtained. Different diagnoses were considered. An IV was started. A CBC, CMP, troponin and BNP were obtained. Lab studies unremarkable. Troponin and BNP were negative. CTA showing multiple segmental pulmonary emboli decreasing in size no evidence of new pulmonary embolus since previous exam. Patient states he does have a history of allergic reactions to IV contrast however with a done in the past as premedication with Benadryl and solu-Medrol, patient was given 50 mg IV Benadryl and 125 mg IV solu Medrol. Patient did well. The patient was given 4 mg IV morphine 3. 10.4 mg sublingual nitroglycerin which did not provide any relief. 324 mg baby aspirin. Patient states the pain has improved. Patient was also instructed to follow-up with his primary care provider as scheduled next week. Patient was also encouraged return to the emergency department if he has any increased redness breath or worsening chest pain or any other concerns. I did reassure the patient that the clots have decreased in size. Patient states he feels more comfortable knowing that the clots of decrease in size, he also said understands that he can return at any time. Patient is agreeable with this plan of care and discharged home. 08/26/2017 12:20:13 pm patient states the chest pain has increased is mildly diaphoretic. Patient will be given nitroglycerin, morphine and Zofran. Patient did not have any relief with the nitroglycerin over the morphine and Zofran did provide some relief. 08/26/2017 4:06:13 pm the [facility] pharmacy still out of hydrocodone, they did call and they will cancel the patient's order at the [facility] pharmacy L go ahead and order the hydrocodone and have it sent to the [facility] pharmacy. Decision to Disposition Date: August 26, 2017 Decision to Disposition Time: 15:37 Depart Departure Latest Vital Signs Vital Signs Date Time Temp Pulse Resp B/P (MAP) Pulse Ox O2 Delivery O2 Flow Rate FiO2 08/26/17 15:30 124/95 (105) 08/26/17 15:26 98 20 92 08/26/17 11:27 98.0 Impression: Primary Impression: Pulmonary emboli Additional Impression: Chest pain Condition: Improved Disposition: HOME OR SELF-CARE New Scripts Hydrocodone Bit/Acetaminophen (HYDROCODON-ACETAMINOPHEN 5-325) 1 Each Tablet 1 EACH PO Q4-6H Y for PAIN, #10 TAB 0 Refills Prov: BRENNON JOLLEY [facility] 08/26/17 Ondansetron (ZOFRAN ODT) 4 Mg Tab.rapdis 4 MG PO Q6H Y for NAUSEA/VOMITING, #20 TAB.LUCILA Prov: BRENNON JOLLEY [facility] 08/26/17 Hydrocodone Bit/Acetaminophen (HYDROCODON-ACETAMINOPHEN 5-325) 1 Each Tablet 1 EACH PO Q4-6H Y for PAIN, #10 TAB Prov: BRENNON JOLLEY [facility] 08/26/17 Patient Instructions: Pulmonary Embolism (GEN) Additional Instructions: Drink plenty of fluids. Get plenty of rest. Continue taking your eliquis as prescribed. You may need to be on an anticoagulant for an extended period of time, this is something to discuss with your primary care provider. Take the hydrocodone and Zofran as prescribed. Follow with your PCP as scheduled. Return to the ED for any other concerns or worsening symptoms. Problem Qualifiers Primary Impression: Pulmonary emboli Pulmonary embolism type: other Chronicity: acute Acute cor pulmonale presence: without acute cor pulmonale Qualified Codes: I26.99 - Other pulmonary embolism without acute cor pulmonale Additional Impression: Chest pain Chest pain type: unspecified Qualified Codes: R07.9 - Chest pain, unspecified BRENNON JOLLEY [facility] August 26, 2017 11:32
[2017-08-26] MEDS ORDERED: ASPIRIN 81 MG CHEW PO ONE (11:40)
[2017-08-26] MEDS ORDERED: diphenhydrAMINE 50 MG/ML VIAL IVP ONE (11:50)
[2017-08-26 12:03] LABS: PLATELET COUNT, AUTOMATED 332 K/uL (150-450)
[2017-08-26 12:11] LABS: INR 1.02
[2017-08-26] MEDS ORDERED: IOPAMIDOL 76% 75 ML INFUS BTL 75 ML ONE (12:12)
[2017-08-26] MEDS ORDERED: NS 0.9% 150 ML BAG 150 ML ONE (12:12)
--- NOTE | 2017-08-26 12:13 | EKG ---
FACILITY: [facility] [place] PATIENT NAME: REY GUIDRY : [id number] MR: [id number] V: [id number] EXAM DATE: ORDERING PHYSICIAN: BRENNON JOLLEY TECHNOLOGIST: MELY Hebert Reason : CARDIAC Blood Pressure : / mmHG Vent. Rate : 093 BPM Atrial Rate : 093 BPM P-R Int : 138 ms QRS Dur : 096 ms QT Int : 350 ms P-R-T Axes : 030 -18 011 degrees QTc Int : 435 ms Normal sinus rhythm Normal ECG When compared with ECG of 29-JUL-2017 21:08, No significant change was found Confirmed by DAVID NAVA ([id number]) on 08/27/2017 11:22:43 AM Referred By: INGRID Confirmed By:DAVID NAVA
[2017-08-26] MEDS ORDERED: ONDANSETRON 4 MG/2 ML VIAL IVP ONE (12:15)
[2017-08-26] MEDS ORDERED: NITROGLYCERIN 0.4 MG SUBL SL ONE (12:15)
[2017-08-26] MEDS ORDERED: MORPHINE 4 MG/ML SDV IVP ONE ×2 (12:15→13:35)
[2017-08-26] MEDS ORDERED: methylPREDNIS SUCC 125 MG/2ML IVP ONE (12:25)
--- NOTE | 2017-08-26 13:20 | RADIOLOGY IMAGING REPORT ---
FACILITY: [facility] [place] PATIENT NAME: Roberto Hilliard : 1970 MR: [id number] V: [id number] EXAM DATE: ORDERING PHYSICIAN: BRENNON JOLLEY TECHNOLOGIST: Location: [facility] [place] Patient: Roberto Hilliard : 1970 Visit/Account:[id number] Date of Sevice: 08/26/2017 EXAMINATION: CTA of the chest with IV contrast HISTORY: Known pulmonary emboli, now having chest pain and increased shortness of breath. COMPARISON: CTA of the chest from 08/12/2017 at [facility]. TECHNIQUE: Pulmonary embolus protocol - Thin-slice axial imaging of the chest was performed during maximal pulmonary arterial opacification with intravenous nonionic iodinated contrast. 3D coronal sla b MIPs and 2D reconstructions in the coronal and sagittal planes were performed to aid in pulmonary e mbolus detection. [employer] images have been stored on PACS. CONTRAST: 75 mL of IV Isovue-370 One of the following dose optimization techniques was utilized in the performance of this exam: Autom ated exposure control; adjustment of the mA and/or kV according to the patient's size; or use of an i terative reconstruction technique. Specific details can be referenced in the facility's radiology C T exam operational policy. FINDINGS: CTA CHEST: Please note that this exam is optimized for assessment of the pulmonary arteries and is not intended as a diagnostic study of the thoracic aorta, coronary arteries or venous structures. Angiographic Findings: Pulmonary arteries: There are multiple small filling defects within bilateral segmental pulmonary art lefty branches. These have decreased in size since the previous examination. No obvious new pulmonary e mboli since the previous examination. The main pulmonary artery is normal caliber measuring 2.6 cm in diameter. Other vasculature: Mild coronary artery calcification involving the LAD. Additional non-angiographic findings: Lungs / Pleura: No focal consolidation or pleural effusion. Mediastinum / Nusrat: Negative. Heart / Pericardium: Normal heart size. There is suggestion of an interatrial septum closure device . Musculoskeletal / Body wall: Negative. Lymph node assessment: Negative. Upper abdomen: Surgical changes of the stomach and bowel. Lower neck: Negative. IMPRESSION: Since the previous examination on 08/12/2017, the multiple segmental pulmonary emboli have decreased i n size. No definite evidence of new pulmonary emboli since the previous examination. Mild coronary artery calcification. Report Dictated By: Octavio Post MD at 08/26/2017 12:57 PM Report E-Signed By: Octavio Post MD at 08/26/2017 1:16 PM [id number]
[2017-08-26] MEDS ORDERED: ONDA4TAB PO (14:55)
[2017-08-26] MEDS ORDERED: HYDR-385 PO ×2 (14:55→16:08)
[2017-08-26 15:30] VITALS: BP 124/95
== END 2017-08-26 15:49 | disposition home or self-care (01) ==
LOC: ER 11:32
DX: R07.89 Other chest pain (principal)
CPT/HCPCS: 71275; 83880; 84484; 85025; 85610; 85730; 93005; 96374; 96375; 96376; 99283; J1200; J2270; J2405; J2930; Q9967; 82040; 82247; 82310; 82374; 82435; 82565; 82947; 84075; 84132; 84155; 84295; 84450; 84460; 84520